=== PATIENT | female | born 1995 | race Two or more races ===

== ENCOUNTER 2024-09-16 06:52 | Emergency (ER) | payer MEDICAID, SELFPAY ==
[2024-09-16 06:53] VITALS: BMI 31.5
[2024-09-16 07:02] VITALS: BP 121/85; PULSE 88; RESP 18; TEMP 36.9; O2SAT 99
--- NOTE | 2024-09-16 07:07 | XR_ITS ---
Examination: Abdomen sonogram, Limited Date and time of exam: September 16, 2024 at 0735 hours INDICATIONS: Epigastric pain and bloating 2 years worse with vomiting the last 3 hours Technique: Real-time li scale transabdominal sonographic images of the upper abdomen obtained. Findings: Multiple gallstones Gallbladder wall 0.46 cm with possible minimal fluid adjacent to the gallbladder wall Common bile duct 0.3 cm Pancreatic head 2.2 cm Liver 16 cm fatty infiltration no focal liver lesions Normal hepatopedal portal venous flow Patent IVC IMPRESSION: Cholelithiasis, suspicious for cholecystitis Recommend HIDA scan or MRCP follow-up
[2024-09-16] MEDS: FAMOTIDINE 20 MG TABLET 40 MG PO (07:18)
[2024-09-16] MEDS: LIDOCAINE VISCOUS 2% 15 ML UDC PO (07:19)
[2024-09-16] MEDS: MG HYD/AL HYD/SIME (Maalox Reg) SUSP 30 ML UDC PO (07:19)
[2024-09-16] MEDS: ONDANSETRON ODT 4 MG TABRAP PO (07:21)
[2024-09-16] MEDS: DICYCLOMINE INJ 10 MG/ML 2ML AMP IM (07:22)
[2024-09-16 07:38] LABS: Collection Type, Urine Clean Catch
[2024-09-16 07:50] LABS: Bilirubin,Urine Negative (Negative); Blood,Urine 1+ (Negative); Clarity,Urine Clear (Clear/Hazy); Color,Urine Lt-Yellow (Lt Yel-Yel); Glucose, Urine Negative (Negative); Ketones,Urine Negative (Negative); Leukocyte Esterase,Urine Positive (Negative); Nitrite,Urine Negative (Negative); Protein,Urine Trace (Neg - Trace); RBC,Urine 1 /hpf (0-3); Specific Gravity,Urine 1.025 (1.001-1.035); Squamous Epithelial Cell,Urine 8 /hpf (0-5); Urobilinogen,Urine Negative mg/dL (0.0-1.0); WBC,Urine 9 /hpf (0-5)
[2024-09-16 07:52] LABS: Basophils # (Auto) 0.1 Thou/mm3 (0.0-0.2); Basophils % (Auto) 1 % (0-2.5); Eosinophils # (Auto) 0.1 Thou/mm3 (0.0-0.5); Eosinophils % (Auto) 1 % (0-10); Hemoglobin 15.1 g/dL (12.0-16.0); Immature Granulocytes % (Auto) 0 % (0-0); Immature Granulocytes Auto 0.04 Thou/mm3 (0.00-0.00); Lymphocytes # (Auto) 1.9 Thou/mm3 (1.0-4.8); Lymphocytes % (Auto) 17 % (10-50); Mean Corpuscular HGB Conc 36.8 g/dl (31.0-37.0); Mean Corpuscular Volume 81 fL (80-100); Monocytes # (Auto) 0.4 Thou/mm3 (0.0-0.8); Monocytes % (Auto) 4 % (0-12); Neutrophils # (Auto) 8.3 Thou/mm3 (1.8-7.7); Neutrophils % (Auto) 77 % (37-80); Nucleated Red Blood Cell % 0 /100 WBC (0); Platelet Count 277 Thou/mm3 (140-440); RDW Standard Deviation 34.1 fL (36.4-46.3); Red Blood Count 5.04 Miln/mm3 (4.00-5.20); White Blood Count 10.7 Thou/mm3 (3.6-11.0)
[2024-09-16 07:55] LABS: HCG Qualitative,Urine Negative
[2024-09-16 08:13] LABS: Alanine Aminotransferase 51 U/L (10-49); Albumin/Globulin Ratio 1.9 (1.2-2.2); Alkaline Phosphatase 78 U/L (46-116); Anion Gap 12 (7-16); Aspartate Amino Transferase 24 U/L (0-34); BUN/Creatinine Ratio 10 Ratio (12-20); Bilirubin,Total 0.6 mg/dL (0.3-1.2); Blood Urea Nitrogen 8 mg/dL (9-23); Carbon Dioxide 26.3 mMol/L (20.0-31.0); Chloride 103 mMol/L (98-107); Creatinine (Component) 0.8 mg/dL (0.6-1.3); Globulin 2.6 gm/dL (2.3-3.5); Glucose 124 mg/dL (74-106); Lipase 26 U/L (12-53); Osmolality,Calculated 280 (275-295); Potassium 4.4 mMol/L (3.4-5.1); Sodium 141 mMol/L (136-145); Total Protein 7.6 gm/dL (5.7-8.2); eGFR > 60 See Note
--- NOTE | 2024-09-16 08:40 | PD.EDABDPN ---
ED Abdominal Pain RME/HPI General Chief Complaint: Abdominal Pain Stated complaint: UPPER ABD PAIN, NAUSEA AND VOMITING Time seen by provider: 09/16/24 06:55 Arrival date/time: 09/16/24 06:52 This is a case of 29-year-old female came in in the emergency room due to abdominal pain located in the epigastric area and right upper quadrant associated with nausea vomiting for 4 days denies any constipation or diarrhea persistence of the symptoms this patient decided to start consult here in the emergency room Limitations: no limitations Related Data Previous Rx's ?Medication ?Instructions ?Recorded famotidine 20 mg tablet 20 mg PO BID 30 days #60 tabs 09/16/24 hydrocodone 5 mg-acetaminophen 325 1 tab PO Q6H PRN pain #15 tabs 09/16/24 mg tablet nitrofurantoin 100 mg PO BID 10 days #20 caps 09/16/24 monohydrate/macrocrystals 100 mg capsule (Macrobid) ondansetron 4 mg disintegrating 4 mg PO Q8H PRN nausea and 09/16/24 tablet vomiting #20 tabs Allergies Allergy/AdvReac Type Severity Reaction Status Date / Time No Known Allergies Allergy Verified 09/16/24 06:53 Review of Systems Review of Systems Systems Reviewed: All systems reviewed, normal except as documented Constitutional Constitutional: Reports system reviewed and no additional complaints, except as documented, Reports as per HPI, Denies anorexia, Denies body ache(s), Denies chills, Denies daytime sleepiness, Denies difficulty sleeping, Denies excessive sweating, Denies fatigue, Denies fever(s), Denies frequent falls, Denies headache(s), Denies increased appetite, Denies poor appetite, Denies lethargy, Denies malaise, Denies night sweats, Denies snoring, Denies stops breathing during sleep, Denies weakness, Denies weight gain and Denies weight loss ENT Ears, Nose, Mouth, and Throat: Denies dysphagia, Denies headache(s) and Denies odynophagia Cardiovascular Cardiovascular: Reports system reviewed and no additional complaints, except as documented and Reports as per HPI Respiratory Respiratory: Reports system reviewed and no additional complaints, except as documented, Reports as per HPI and Denies snoring Gastrointestinal Gastrointestinal: Reports system reviewed and no additional complaints, except as documented, Reports as per HPI, Reports abdominal pain, Denies belching, Denies bloating, Denies change in bowel habits, Denies change in stool character, Denies coffee ground emesis, Denies constipation, Denies cramping, Denies diarrhea, Denies dyspepsia, Denies dysphagia, Denies early satiety, Denies excessive flatus, Denies fecal incontinence, Denies heartburn, Denies hematemesis, Denies hematochezia, Denies loose stools, Denies melena, Reports nausea, Denies odynophagia, Reports tenesmus and Reports vomiting Musculoskeletal Musculoskeletal: Reports system reviewed and no additional complaints, except as documented and Reports as per HPI Neurologic Neurologic: Reports system reviewed and no additional complaints, except as documented, Reports as per HPI, Denies frequent falls, Denies headache(s) and Denies weakness Endocrine Endocrine: Denies excessive sweating and Denies fatigue Past Medical History Past Medical History CARDIAC: Negative Congestive Heart Failure RESPIRATORY: Negative Chronic Obstructive Pulmonary Disease (COPD) GENITOURINARY: Negative Renal Disease ENDOCRINE: Negative Diabetes Mellitus Type 1 or Diabetes Mellitus Type 2 Social History SMOKING STATUS: Never smoker ED Exam General Limitations: Present no limitations General appearance: Present alert and in no apparent distress; Absent appears intoxicated, anxious, lethargic, obtunded or in distress Head Head exam: Present atraumatic Eye Eye exam: Present normal appearance, PERRL and EOMI ENT ENT exam: Present normal exam, normal oropharynx and mucous membranes moist Neck Neck exam: Present normal inspection, full ROM and trachea midline Chest Chest inspection: Present normal inspection and symmetric chest wall rise Respiratory Respiratory exam: Present normal lung sounds bilaterally; Absent respiratory distress, wheezes, stridor, accessory muscle use or prolonged expiratory phase Cardiovascular Cardiovascular exam: Present regular rate, normal rhythm and normal heart sounds; Absent bradycardia, tachycardia, irregular rhythm or systolic murmur Abdominal Exam Abdominal exam: Present soft, tenderness (Mild tenderness in the epigastric area and right upper quadrant), normal bowel sounds and diminished bowel sounds; Absent distention, guarding, rebound, rigidity, hyperactive bowel sounds, hypoactive bowel sounds, organomegaly, trauma, incision, psoas sign, obturator sign, heel tap sign, Joy's sign, Rovsing's sign, tenderness at McBurney's Point, ascites, mass, bruit, pulsatile mass or hernia Extremities Exam Extremities exam: Present normal inspection and full ROM Back Exam Back exam: Present normal inspection and full ROM Neurological Exam Neurological exam: Present alert, oriented X3 and CN II-XII intact Psychiatric Psychiatric exam: Present normal affect and normal mood Skin Skin exam: Present warm, dry, intact and normal color Course Quality Measures none Orders Category Date Time Status NM HIDA w pharm Stat Exams 09/16/24 09:17 Completed US gall bladder Stat Exams 09/16/24 07:07 Completed CBC Stat Lab 09/16/24 07:33 Completed Comprehensive Metabolic Panel Stat Lab 09/16/24 07:33 Completed HCG Qualitative,Urine Stat Lab 09/16/24 07:30 Completed Lipase Stat Lab 09/16/24 07:33 Completed Urinalysis Stat Lab 09/16/24 07:30 Completed Dicyclomine Inj [Bentyl Inj] Med 09/16/24 07:07 Discontinued 10 mg IM X1 ONE Famotidine [Pepcid] Med 09/16/24 07:07 Discontinued 40 mg PO X1 ONE Lidocaine 2% Viscous [Xylocaine 2% Viscous] Med 09/16/24 07:07 Discontinued 15 ml PO X1 ONE Ondansetron Odt [Zofran Odt] Med 09/16/24 07:08 Discontinued 4 mg PO X1 ONE Sterile Water 10 ml Med 09/16/24 12:11 Discontinued .ROUTE .STK-MED mg Hyd/Al Hyd/Freddie Susp [Maalox Susp] Med 09/16/24 07:07 Discontinued 30 ml PO X1 ONE Vital Signs Vital signs: Vital Signs Temperature 98.4 F 09/16/24 07:02 Pulse Rate 88 09/16/24 07:02 Respiratory Rate 18 09/16/24 07:02 Blood Pressure 121/85 H 09/16/24 07:02 Pulse Oximetry (%) 99 09/16/24 07:02 Oxygen Delivery Method Room Air 09/16/24 07:02 Patient is awake alert oriented not in distress not toxic looking patient is not febrile not tachycardic not tachypneic vital signs stable not hypoxic oxygen saturation is in room air Abdominal Pain MDM MDM Narrative MDM Narrative:: This is a case of 29-year-old female came in in the emergency room due to abdominal pain located in the epigastric area and right upper quadrant associated with nausea vomiting for 4 days denies any constipation or diarrhea persistence of the symptoms this patient decided to start consult here in the emergency room physical examination patient is awake alert oriented not in distress nontoxic looking patient is well-hydrated well-nourished patient is afebrile not tachycardic not tachypneic not hypoxic BP stable abdominal exam noted mild tenderness in the epigastric area in the right upper quadrant normal active bowel sounds no guarding no rebound no rigidity negative psoas negative 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 Hogue patient condition history and physical examination the results of ultrasound given ordered to perform HIDA scan and inform him the result HIDA scan resulted with cholelithiasis no common bile duct stone discussed again with Dr. Hogue the result of the test and I was informed instructed to discharge the patient and follow-up with his clinic in 2 days patient was given GI cocktail Zofran and Bentyl abdominal exam is benign no guarding no rebound no rigidity no tenderness patient verbalized resolved of the pain no recurrence of the vomiting at this point discharge instruction was given with the patient she will follow-up with Dr. Hogue for further evaluation and treatment of cholelithiasis and need to see also general surgeon for cholelithiasis for any recurrence worsening symptoms or any emergent concerns she will return in the emergency room immediately or call 911 Patient was discharged with comfortable condition walking with stable gait. Patient verbalized no further complains explained diagnosis and answered patient question. Patient is comfortable with the proposed management plan including the need to follow up with his/her primary care physician and any specialist if applicable Discussed patient for any urgent condition or worsening sx, He/She needed to go to emergency room immediately or call 911. Patient acknowledge the responsibility to follow up as instructed and to monitor her/his symptoms. For any persistence of the symptoms for more than 3-5 days return precaution advised. Discussed the result of the test and was given printed discharge instruction Patient data External records reviewed:: [facility] [place] previous records Clinical information provided by:: patient Social determinants that could affect healthcare access:: none Patient has the following chronic illnesses:: None How is presenting disease/condition affected by chronic disease/condition?: no chronic disease Evaluation data The following diagnostics were reviewed and interpreted by me:: lab results and radiology exam(s) Lab and/or radiology exams considered but not ordered:: Reviewed Interpretation Summary: Reviewed Medications / Prescriptions Medications or Prescriptions considered but not ordered:: Given Medication administrations:: Medication Administration History Discontinued Medications Al Hydrox/Mg Hydrox/Simethicone (Mg Hyd/Al Hyd/Freddie (Maalox Reg) Susp 30 Ml Udc) 30 ml PO X1 ONE Stop: 09/16/24 07:08 Last Admin: 09/16/24 07:19 Dose: 30 ml Documented By: AFSHIN Dicyclomine HCl (Dicyclomine Inj 10 Mg/Ml 2ml Amp) 10 mg IM X1 ONE Stop: 09/16/24 07:08 Last Admin: 09/16/24 07:22 Dose: 10 mg Documented By: AFSHIN Famotidine (Famotidine 20 Mg Tablet) 40 mg PO X1 ONE Stop: 09/16/24 07:08 Last Admin: 09/16/24 07:18 Dose: 40 mg Documented By: AFSHIN Sterile Water (Sterile Water) Confirm Administered Dose 10 mls @ ud .ROUTE .STK-MED ONE Stop: 09/16/24 12:12 Last Admin: 09/16/24 17:02 Dose: Not Given Documented By: DO Non-Admin Reason: did not pull in ed Lidocaine HCl (Lidocaine Viscous 2% 15 Ml Udc) 15 ml PO X1 ONE Stop: 09/16/24 07:08 Last Admin: 09/16/24 07:19 Dose: 15 ml Documented By: AFSHIN Ondansetron HCl (Ondansetron Odt 4 Mg Tabrap) 4 mg PO X1 ONE; Protocol Stop: 09/16/24 07:09 Last Admin: 09/16/24 07:21 Dose: 4 mg Documented By: AFSHIN Given Consultations Consultation(s) initiated? (list below): No Consultation #1 (Physician, Specialty, Details): Dr. Hogue perform HIDA scan Consultation #2 (Physician, Specialty, Details): Dr. Hogue discharge patient Diagnosis Differential diagnosis abdominal pain: abdominal pain and other (Cholelithiasis cholecystitis) Most likely diagnosis given after review of the tests above:: Cholelithiasis Admission Indicated Admission indicated?: not indicated Explain why admission is indicated or not indicated:: Not indicated Admission Request Was there a request for admission?: No Admission Attestation Admission request attestation: Not indicated Disposition Plan Disposition Plan: Discharge Discharge Attestation Discharge Attestation: The patient and all family members were given an opportunity to ask questions and understood the discharge instructions. Discharge instructions specifically effects, indications for sooner follow up or return to the emergency department, and the expected course of current diagnosis. Patient condition: Stable Discharge Plan Plan Patient Disposition: HOME (Self Care) Patient condition on transfer: Stable Prescriptions/Referrals Prescriptions/Med Rec: New hydrocodone-acetaminophen 5-325 mg tablet 1 tab PO Q6H MDD max 4 tabs per day PRN (Reason: pain) Qty: 15 0RF famotidine 20 mg tablet 20 mg PO BID 30 Days Qty: 60 0RF ondansetron 4 mg tablet,disintegrating 4 mg PO Q8H PRN (Reason: nausea and vomiting) Qty: 20 0RF nitrofurantoin monohyd/m-cryst [Macrobid] 100 mg capsule 100 mg PO BID 10 Days Qty: 20 0RF Rx Instructions: must administer with a meal/food Referrals: Emigdio Bucio MD [Physician] - In 1 week (For further evaluation and treatment of your cholelithiasis) Ginette Hogue MD [Physician] - In 1 week (For further evaluation and treatment of your cholelithiasis and gastritis) No Primary/Family,Physician [Primary Care Provider] - In 1 week Problem List Clinical Impression: Abdominal pain, Cholelithiasis, Urinary tract infection Patient/Caregiver Discharge Instructions Education Materials: Abdominal Pain, What Are Gallstones, Understanding Urinary Tract ... Additional Instructions: Follow-up with your primary care physician in 2 days for reevaluation follow-up with Dr. Hogue for further evaluation and treatment of your gastritis and your cholelithiasis it is very important to see a general surgery for further evaluation and treatment of your cholelithiasis for any recurrence persistent worsening symptoms or any emergent concern return to the emergency room immediately or call 911 Keep hydrated Pedialyte Gatorade for hydration no fats no dairy food no alcohol no soda no coffee avoid skipping of meals avoid fat fried high cholesterol food Print Language: Amharic Stand Alone Forms: Ness Award Info., Patient Portal Info Letter PA/STAFF WRITER Supervising Physician PA/NANCI Supervising Physician: dr keita
--- NOTE | 2024-09-16 09:17 | XR_ITS ---
Examination: MECHELLEA, hepatobiliary radioisotope scan Gallbladder ejection fraction study. Date and time of exam: September 16, 2024 1356 hours INDICATIONS: Upper abdominal pain epigastric pain nausea vomiting today, gallstones, gallbladder wall 0.46 cm on ultrasound today Technique: 5.9 mCi of 99M Hepatolite administered. Serial imaging then obtained from immediate through 60 minutes. 1.4 mcg selective catheter Kinevac administered for gallbladder ejection fraction study. Findings: Radioisotope activity within the liver is reasonably homogenous. Gallbladder, common bile duct small bowel activity noted Impression: Gallbladder activity is noted, negative for cystic duct obstruction Abnormal gallbladder ejection fraction, 30%, normal greater than 35%
[2024-09-16 09:56] VITALS: BP 123/86; PULSE 89; RESP 19; TEMP 36.9; O2SAT 99
--- NOTE | 2024-09-16 11:21 | PC.NURSE ---
Patient came in to ED for abdominal pain to RUQ and mid abdomen that started around 0500 this morning. Patient started having nausea and vomiting when she woke up. Patient states this type of pain has occurred before but she has never been seen for it by primary care. Patient denies any medical history besides depression. Patient denies pain at this time. Vitals are stable. Patient laying in gurney, waiting for HIDA scan. Per Nuclear Med staff, HIDA scan should be completed around 1330/1400 today. Per Nuclear Medicine patient must remain NPO and with no administration of Dilaudid or morphine for pain before scan. Patient in agreement in with plan. Patient's last intake was a small sip of water this morning and OTC tums around 0500.
[2024-09-16 12:23] VITALS: BP 112/78; PULSE 81; RESP 17; TEMP 36.5; O2SAT 97
[2024-09-16 14:16] VITALS: BP 137/94; PULSE 92; RESP 18; TEMP 36.7; O2SAT 98
--- NOTE | 2024-09-16 14:40 | PC.NURSE ---
Patient taken for HIDA scan.
[2024-09-16 17:03] VITALS: BP 113/75; PULSE 80; RESP 18; O2SAT 99
== END 2024-09-16 17:40 | disposition home or self-care (01) ==
PROVIDERS: Nurse Practitioner Family; Emergency Provider Emergency Medicine
DX: K80.20 Calculus of gallbladder without cholecystitis without obstruction (principal); N39.0 Urinary tract infection, site not specified
CPT/HCPCS: 36415; 76705; 78227; 80053; 81001; 81025; 83690; 85025; 96372; 99284; A9537; J0500; J2805; J3490; Q0162; A9270